=== PATIENT | female | born 1990 | race Caucasian/White ===

== ENCOUNTER 2017-07-15 21:06 | Emergency (ER) | payer MEDICAID ==
[~2017-07-15] VITALS: Ht 162.6 cm; Wt 95.3 kg
[~2017-07-15 21:06] MED LIST: IBUP-784
[2017-07-15 21:23] VITALS: BP_SYST 140
[2017-07-15] MEDS ORDERED: KETOROLAC TROMETHAMINE 60 MG/2 ML VIAL IM ONE (23:45)
[2017-07-15] MEDS ORDERED: PENICILLIN G BENZATHINE 1.2 MMU/2 ML SYR IM ONE (23:45)
[2017-07-15] MEDS ORDERED: DEXAMETHASONE SOD PHOSPHATE 10 MG/ML VIAL IM ONE (23:45)
[2017-07-16 00:36] VITALS: BP_SYST 138
== END 2017-07-16 00:36 | disposition home or self-care (01) ==
LOC: SED 21:06
DX: J03.90 Acute tonsillitis, unspecified (principal); J45.909 Unspecified asthma, uncomplicated
CPT/HCPCS: 96372; 99284; J0561; J1100; J1885

== ENCOUNTER 2017-07-22 11:07 | Emergency (ER) | payer MEDICAID ==
[~2017-07-22] VITALS: Ht 160 cm; Wt 104.3 kg
[2017-07-22 11:11] VITALS: BP_SYST 142
--- NOTE | 2017-07-22 11:19 | NUR ---
Pt placed to ER waiting room in stable condition.
[2017-07-22 11:43] LABS: BASOPHILS # (AUTO) 0.1 K/uL (0.0-0.2); BASOPHILS % (AUTO) 0.6 % (0.0-2.0); EOSINOPHILS # (AUTO) 0.5 K/uL (0.0-0.4); EOSINOPHILS % (AUTO) 2.5 % (0.0-4.0); HEMATOCRIT 43.7 % (36-48); LYMPHOCYTES # (AUTO) 6.9 K/uL (1.0-5.5); LYMPHOCYTES % (AUTO) 34.9 % (20.5-51.5); MEAN CORPUSCULAR HEMOGLOBIN 27 pg (27-31); MEAN CORPUSCULAR HGB CONC 32 % (32-36); MEAN CORPUSCULAR VOLUME 83 fL (79.0-98.0); MONOCYTES # (AUTO) 1.4 K/uL (0.0-1.0); MONOCYTES % (AUTO) 7.1 % (1.7-9.3); NEUTROPHILS # (AUTO) 10.7 K/uL (1.8-7.7); NEUTROPHILS % (AUTO) 54.9 % (40.0-70.0); PLATELET COUNT (AUTO) 492 K/uL (130-430); RED BLOOD CELL COUNT(AUTO) 5.29 MIL/uL (4.2-6.2); RED CELL DISTRIBUTION WIDTH 13.4 % (9.0-15.0); WHITE BLOOD COUNT (AUTO) 19.6 K/uL (4.8-10.8)
[2017-07-22 12:01] LABS: CALCIUM 9.6 mg/dL (8.4-11.0); CREATININE 0.75 mg/dL (0.55-1.30); POTASSIUM 3.6 mmol/L (3.5-5.1)
[2017-07-22 12:07] LABS: ALBUMIN 3.7 g/dL (3.4-4.8); TOTAL BILIRUBIN 0.2 mg/dL (0.0-1.0)
--- NOTE | 2017-07-22 12:44 | NUR ---
Patient to ER bed 4 to gown for evaluation. Side rails up. Report given to Albino .
--- NOTE | 2017-07-22 12:47 | NUR ---
ER at bedside examining patient.
--- NOTE | 2017-07-22 12:50 | NUR ---
Pt presents to ER with multiple complaints. Pt states that she has chest pain, sob, non-productive cough, general weakness for the past 2 months. Pt states that she has been to the ER several times for these complaints. Pt denies any significant medical history. Pt AOX4, NKDA.
[2017-07-22] MEDS ORDERED: IBUPROFEN 600 MG TABLET PO ONE (13:45)
[2017-07-22] MEDS ORDERED: IPRATROPIUM/ALBUTEROL SULFATE 3 ML AMPUL.NEB INH ONE (13:45)
[2017-07-22 14:18] LABS: BILIRUBIN,URINE NEGATIVE (NEGATIVE); BLOOD, URINE 2+ (NEGATIVE); CLARITY/URINE CLEAR (CLEAR); COLOR,URINE YELLOW (YELLOW); GLUCOSE,URINE NEGATIVE (NEGATIVE); KETONES,URINE NEGATIVE (NEGATIVE); LEUKOCYTE ESTERASE ,URINE NEGATIVE (NEGATIVE); NITRITE, URINE NEGATIVE (NEGATIVE); PROTEIN URINE NEGATIVE (NEGATIVE); UROBILINOGEN,URINE 0.2 (0.2-1.0)
[2017-07-22 14:25] LABS: HCG,QUAL RESULT NEGATIVE (NEGATIVE)
[2017-07-22 14:29] LABS: BACTERIA,URINE FEW /HPF (None Seen); MUCUS,URINE 1+ /LPF (None Seen); WBC,URINE 0-3 /HPF (0-3)
--- NOTE | 2017-07-22 14:35 | NUR ---
Respiratory at bedside for breathing tx.
[2017-07-22 16:12] LABS: STREPTOCOCCUS A SCREEN (RAPID) NEGATIVE (NEGATIVE)
[2017-07-22 16:56] LABS: MONOTEST NEGATIVE (NEGATIVE)
--- NOTE | 2017-07-22 17:29 | NUR ---
Patient given written and verbal discharge instructions and verbalizes understanding. ER MD discussed with patient the results and treatment provided. Patient in stable condition. ID arm band removed. Rx of flagyl given. Patient educated on pain management and to follow up with PMD. Pain Scale 0. Opportunity for questions provided and answered.
== END 2017-07-22 17:31 | disposition home or self-care (01) ==
LOC: SED 11:07
DX: K52.9 Noninfective gastroenteritis and colitis, unspecified (principal); J35.1 Hypertrophy of tonsils; J45.909 Unspecified asthma, uncomplicated
CPT/HCPCS: 36415; 71045; 80053; 81000-TC; 83605; 83690-TC; 84703; 85025; 86308-TC; 86403; 86710; 87040-TC; 87081; 93005; 94640; 99285

== ENCOUNTER 2018-01-25 13:20 | Emergency (ER) | payer MEDICAID ==
[~2018-01-25] VITALS: Ht 160 cm; Wt 111.1 kg
[2018-01-25 13:38] VITALS: BP_SYST 153
[2018-01-25] MEDS ORDERED: NACL 0.9% 1,000 ML IV ONE (13:50)
[2018-01-25] MEDS ORDERED: ONDANSETRON HCL 4 MG/2 ML VIAL IVP ONE (14:00)
[2018-01-25 14:39] LABS: BASOPHILS % (AUTO) 0.6 % (0.0-2.0); EOSINOPHILS # (AUTO) 0.2 K/uL (0.0-0.4); EOSINOPHILS % (AUTO) 2.6 % (0.0-4.0); HEMATOCRIT 38.3 % (36-48); HEMOGLOBIN 12.6 g/dL (12.0-16.0); LYMPHOCYTES # (AUTO) 2.1 K/uL (1.0-5.5); LYMPHOCYTES % (AUTO) 34.2 % (20.5-51.5); MEAN CORPUSCULAR HEMOGLOBIN 27 pg (27-31); MEAN CORPUSCULAR HGB CONC 33 % (32-36); MEAN CORPUSCULAR VOLUME 82 fL (79.0-98.0); MONOCYTES # (AUTO) 0.9 K/uL (0.0-1.0); MONOCYTES % (AUTO) 14.2 % (1.7-9.3); NEUTROPHILS # (AUTO) 2.9 K/uL (1.8-7.7); NEUTROPHILS % (AUTO) 48.4 % (40.0-70.0); PLATELET COUNT (AUTO) 419 K/uL (130-430); RED CELL DISTRIBUTION WIDTH 13.8 % (9.0-15.0); WHITE BLOOD COUNT (AUTO) 6.1 K/uL (4.8-10.8)
[2018-01-25 14:50] LABS: BILIRUBIN,URINE NEGATIVE (NEGATIVE); BLOOD, URINE NEGATIVE (NEGATIVE); COLOR,URINE YELLOW (YELLOW); GLUCOSE,URINE NEGATIVE (NEGATIVE); KETONES,URINE NEGATIVE (NEGATIVE); LEUKOCYTE ESTERASE ,URINE 1+ (NEGATIVE); NITRITE, URINE NEGATIVE (NEGATIVE); PH,URINE 6.5 (5.0-8.0); PROTEIN URINE TRACE (NEGATIVE); UROBILINOGEN,URINE 0.2 (0.2-1.0)
[2018-01-25 14:52] LABS: CALCIUM 8.9 mg/dL (8.4-11.0); CREATININE 0.67 mg/dL (0.55-1.30)
[2018-01-25 14:55] LABS: CLARITY/URINE HAZY (CLEAR)
[2018-01-25 14:56] LABS: ALBUMIN 3.2 g/dL (3.4-4.8); TOTAL BILIRUBIN 0.2 mg/dL (0.0-1.0)
[2018-01-25 15:12] LABS: BACTERIA,URINE MODERATE /HPF (None Seen); RBC,URINE 0-3 /HPF (0-3)
[2018-01-25] MEDS ORDERED: AZITHROMYCIN 250 MG TABLET PO ONE (15:45)
[2018-01-25 15:50] VITALS: BP_SYST 142
== END 2018-01-25 15:50 | disposition home or self-care (01) ==
LOC: SED 13:20
DX: N39.0 Urinary tract infection, site not specified (principal); R19.7 Diarrhea, unspecified; R03.0 Elevated blood-pressure reading, without diagnosis of hypertension; J45.909 Unspecified asthma, uncomplicated
CPT/HCPCS: 36415; 74176; 80053; 81000; 81025; 83690; 85025; 87086; 96361; 96374; 99285; J2405; J7030; Q0144

== ENCOUNTER 2019-04-03 14:13 | Emergency (ER) | payer MEDICAID ==
[~2019-04-03] VITALS: Ht 160 cm; Wt 111.1 kg
[2019-04-03 14:17] VITALS: BP_SYST 150
[2019-04-03] MEDS ORDERED: NACL 0.9% 1,000 ML IV ONE (15:00)
[2019-04-03] MEDS ORDERED: LORazepam 2 MG/ML VIAL IVP ONE (15:00)
[2019-04-03] MEDS ORDERED: ALBUTEROL SULFATE 0.083% 2.5 MG/3 ML VIAL.NEB INH ONE (16:45)
[2019-04-03 17:12] VITALS: BP_SYST 142
== END 2019-04-03 17:12 | disposition home or self-care (01) ==
LOC: SED 14:13
DX: F41.9 Anxiety disorder, unspecified (principal); R03.0 Elevated blood-pressure reading, without diagnosis of hypertension; J45.909 Unspecified asthma, uncomplicated
CPT/HCPCS: 71045; 93005; 94640; 96374; 99284; J2060; J7613

== ENCOUNTER 2019-05-09 10:56 | Emergency (ER) | payer MEDICAID ==
[~2019-05-09] VITALS: Ht 160 cm; Wt 115.7 kg
[2019-05-09 11:10] VITALS: BP_SYST 138
--- NOTE | 2019-05-09 11:18 | NUR ---
Patient to ER bed 5 to gown for evaluation. Side rails up. Report given to Jeff HARRIS.
--- NOTE | 2019-05-09 11:25 | NUR ---
Patient is awake, alert, and oriented x4. Patient is complaining of SOB and coughing for 3 months, has been in the ER multiple times for same issue, and has not seen her PCP. States she is better off coming in to the ER since its "impossible" to get an appointment with her PCP. She also states she has red sputum.
--- NOTE | 2019-05-09 11:27 | NUR ---
CELINA Vazquez at bedside examining patient.
--- NOTE | 2019-05-09 12:38 | NUR ---
Spoke with Angelika in lab, she states that they will start processing strep swab now.
[2019-05-09 13:10] VITALS: BP_SYST 130
--- NOTE | 2019-05-09 13:10 | NUR ---
Patient given written and verbal discharge instructions and verbalizes understanding. ER MD discussed with patient the results and treatment provided. Patient in stable condition. ID arm band removed. Rx of azithromycin given. Patient educated on pain management and to follow up with PMD. Pain Scale 0/10. Opportunity for questions provided and answered. Medication side effect fact sheet provided.
== END 2019-05-09 13:10 | disposition home or self-care (01) ==
LOC: SED 10:56
DX: J40 Bronchitis, not specified as acute or chronic (principal); K21.9 Gastro-esophageal reflux disease without esophagitis
CPT/HCPCS: 36415; 71046-TC; 81002; 81025; 86403; 87081; 99284

== ENCOUNTER 2023-05-04 16:06 | Emergency (ER) | payer MEDICAID ==
[~2023-05-04] VITALS: Ht 160 cm; Wt 70.3 kg
[2023-05-04 16:09] VITALS: BP_SYST 135; PULSE 75; RESP 16; TEMP 97.8; O2SAT 97
[2023-05-04] MEDS ORDERED: cefTRIAXone 1 GM VIAL IM ONE (17:30)
[2023-05-04] MEDS ORDERED: KETOROLAC TROMETHAMINE 60 MG/2 ML VIAL IM ONE (17:30)
[2023-05-04] MEDS ORDERED: TRAM50TA2 PO (17:57)
[2023-05-04] MEDS ORDERED: AMOX-423 PO (17:57)
== END 2023-05-04 18:00 | disposition home or self-care (01) ==
LOC: SED 16:06
DX: K04.7 Periapical abscess without sinus (principal); R68.84 Jaw pain; J45.909 Unspecified asthma, uncomplicated; K21.9 Gastro-esophageal reflux disease without esophagitis; Z79.899 Other long term (current) drug therapy
CPT/HCPCS: 99284; 81025; 96372; J0696; J1885